=== PATIENT | male | born 1960 | race Hispanic/Latino ===

== ENCOUNTER 2017-08-30 10:09 | Emergency (ER) | payer SELFPAY ==
[~2017-08-30 10:09] MED LIST: Sterile Water Irrigation 250 ML BOT ONE
[2017-08-30] MEDS ORDERED: Tetracaine 0.5% OPHTH SOLN/PF 4 ML BOT ONE (10:19)
== END 2017-08-30 10:48 | disposition home or self-care (01) ==
LOC: MADERS 10:09
DX: S05.02XA Injury of conjunctiva and corneal abrasion without foreign body, left eye, initial encounter (principal); I10 Essential (primary) hypertension; E11.9 Type 2 diabetes mellitus without complications; Z79.84 Long term (current) use of oral hypoglycemic drugs; V09.9XXA Pedestrian injured in unspecified transport accident, initial encounter
CPT/HCPCS: 99283